=== PATIENT | male | born 1945 | race Caucasian/White ===

== ENCOUNTER → 2020-06-23 | Outpatient (CLI) | payer MEDICARE ==
--- NOTE | 2020-06-24 09:24 | REPVR ---
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 COMPARISON: No relevant prior studies available. FINDINGS: Brain: There is no extra-axial collection or intra-axial mass. Moderate diffuse volume loss is within the range of normal for patient age. This does not asymmetrically involves the temporal lobes. There are foci of increased T2 and FLAIR signal within the periventricular and subcortical white matter, nonspecific but typically small-vessel ischemia in this age group. There is no diffusion restriction. Cerebral ventricles: Prominence of the ventricular system is commensurate with volume loss. Bones/joints: Unremarkable. Paranasal sinuses: Normal as visualized. No acute sinusitis. Mastoid air cells: Normal as visualized. No mastoid effusion. Orbits: Unremarkable. Soft tissues: Unremarkable. IMPRESSION: No acute abnormality. Electronically signed by: Maylin Vallejo On 06/24/2020 09:23:49 AM
== END ==
LOC: M RAD 15:30
PROVIDERS: ATTEND Family Medicine
DX: F03.90 Unspecified dementia, unspecified severity, without behavioral disturbance, psychotic disturbance, mood disturbance, and anxiety (principal)